=== PATIENT | female | born 1975 | race Caucasian/White ===

== ENCOUNTER 2021-05-05 06:28 | Outpatient (RCR) | payer BC, SELFPAY ==
--- NOTE | 2021-04-14 15:08 | N.ONRAD NP_ITS ---
Radiation Oncology Consultation Patient Name: Lorena Jacome Date of : 1975 Date of Service: 04/14/2021 Attending Physician: Omar Palm M.D. Lorena Jacome was seen in consultation this afternoon at the request of Moses Devlin M.D. for evaluation regarding potential postmastectomy radiotherapy for the management of a locally advanced breast cancer. She presented with left breast changes. Bilateral diagnostic mammography ordered on October 21, 2020 revealed a increased density in the subareolar region of the left breast with associated overlying skin thickening. A core needle biopsy obtained on October 22, 2020 diagnosed a grade 1-2 invasive mammary carcinoma with ductal and lobular features. A directed biopsy of a 1 cm left axillary lymph node demonstrated metastatic carcinoma. The breast cancer prognostic profile was positive for estrogen receptor (70%) and progesterone receptor (95%), but negative for HER-2. The Ki-67 was 10%. A MammaPrint Gene Risk of Recurrence identified a high risk luminal-type B molecular subtype. A metastatic work-up was unremarkable. Neoadjuvant chemotherapy (dose-dense Adriamycin and cyclophosphamide for 4 cycles and dose-dense paclitaxel for 4 cycles; Jessica Hughes D.O.-medical oncologist at [facility] in [place], [place]) was administered between the dates of November 19, 2020 through February 25, 2021. A left modified radical mastectomy with axillary lymph node dissection was performed on March 21, 2021 by Moses Devlin M.D. The [facility] diagnosed a grade 1 invasive mammary carcinoma with mixed lobular and ductal features measuring 5.5 cm associated with low-grade DCIS without extensive intraductal component. The closest surgical margin was 0.03 mm. A total of 19 lymph nodes were harvested with four macrometastases noted. The largest lymph node measured 1.5 cm with extranodal extension present. I reviewed with the patient her AJCC initial clinical stage IIA (T3N1) breast cancer, in addition to her pathological stage yIIA ??? T3N2a. I also discussed The National Comprehensive Cancer Network Guidelines for post-operative radiotherapy in patients with positive lymph node metastases. In addition, I described the classic studies by the [place] [facility] and the Early Breast Cancer Trialists??? Collaborative Group. She is aware that these studies demonstrated an overall survival improvement in patients treated with post-mastectomy radiotherapy. I recommend a 5 week course of chest wall and regional lymph node radiotherapy. A CT scan will be performed for radiotherapy planning prior to beginning treatment to delineate the clinical target volumes. The potential toxicity of postmastectomy radiotherapy was also addressed. The patient has verbalized understanding would like to discuss treatment with her family. The patient???s medical treatment plan was discussed with Moses Devlin M.D. Signed by: Dr. Omar Palm 04/14/2021 3:07:43 PM
--- NOTE | 2021-04-19 | CT_ITS ---
Radiation Therapy Planning CT images; total exam DLP: 450.41 mGy-cm MTDD
--- NOTE | 2021-04-25 08:55 | ONCRAD TMN_ITS ---
Radiation Oncology Treatment Management Note Patient Name: Lorena Jacome Date of : 1975 Date of Service: 04/25/2021 Attending Physician: Omar Palm M.D. Lorena Jacome is a 46 year-old white female diagnosed with a clinical stage IIA (T3N1) grade 1 invasive mammary carcinoma with mixed lobular and ductal features breast cancer of the subareolar region of the left breast. The breast cancer prognostic profile was positive for estrogen receptor (70%) and progesterone receptor (95%), but negative for HER-2. The Ki-67 was 10%. A MammaPrint Gene Risk of Recurrence identified a high risk luminal-type B molecular subtype. Neoadjuvant chemotherapy (dose-dense Adriamycin and cyclophosphamide for 4 cycles and dose-dense paclitaxel for 4 cycles) was administered between the dates of November 19, 2020 through February 25, 2021. A left modified radical mastectomy with axillary lymph node dissection was performed on March 21, 2021 by Moses Devlin M.D. Pathology demonstrated a grade 1 invasive mammary carcinoma with mixed lobular and ductal features breast cancer measuring 5.5 cm associated with low-grade DCIS without extensive intraductal component. The closest surgical margin was 0.03 mm. A total of 19 lymph nodes were harvested with four macrometastases noted. The largest lymph node measured 1.5 cm with extranodal extension present. The pathological stage is yIIA ??? T3N2a. She has received 2 Gy of a prescribed 50 Gy delivered with a 3D conformal radiotherapy plan utilizing opposed tangential portal guan matched to supraclavicular fossa and PAB ports. Upon review of systems, she denied chest wall complaints to radiotherapy. On physical examination, the patient weighed 173 lbs. Her temperature was 98.4 ???F with a blood pressure of 134/84 mmHg. Her pulse was 72 bpm and her respiratory rate was 18. There was no erythema within the treatment guan of the left chest wall. Continue left chest wall and regional lymph node irradiation as prescribed. Signed by: Dr. Omar Palm 05/03/2021 8:58:18 AM
--- NOTE | 2021-05-03 08:59 | ONCRAD TMN_ITS ---
Radiation Oncology Treatment Management Note Patient Name: Lorena Jacome Date of : 1975 Date of Service: 05/03/2021 Attending Physician: Omar Palm M.D. Lorena Jacome is a 46 year-old white female diagnosed with a clinical stage IIA (T3N1) grade 1 invasive mammary carcinoma with mixed lobular and ductal features breast cancer of the subareolar region of the left breast. The breast cancer prognostic profile was positive for estrogen receptor (70%) and progesterone receptor (95%), but negative for HER-2. The Ki-67 was 10%. A MammaPrint Gene Risk of Recurrence identified a high risk luminal-type B molecular subtype. Neoadjuvant chemotherapy (dose-dense Adriamycin and cyclophosphamide for 4 cycles and dose-dense paclitaxel for 4 cycles) was administered between the dates of November 19, 2020 through February 25, 2021. A left modified radical mastectomy with axillary lymph node dissection was performed on March 21, 2021 by Moses Devlin M.D. Pathology demonstrated a grade 1 invasive mammary carcinoma with mixed lobular and ductal features breast cancer measuring 5.5 cm associated with low-grade DCIS without extensive intraductal component. The closest surgical margin was 0.03 mm. A total of 19 lymph nodes were harvested with four macrometastases noted. The largest lymph node measured 1.5 cm with extranodal extension present. The pathological stage is yIIA ??? T3N2a. She has received 14 Gy of a prescribed 50 Gy delivered with a 3D conformal radiotherapy plan utilizing opposed tangential portal guan matched to supraclavicular fossa and PAB ports. Upon review of systems, she denied chest wall complaints related to radiotherapy. On physical examination, the patient weighed 175 lbs. Her temperature was 98.8 ???F with a blood pressure of 122/83 mmHg. Her pulse was 77 bpm and her respiratory rate was 18. There was no erythema within the treatment guan of the left chest wall. Continue left chest wall and regional lymph node irradiation as planned. Signed by: Dr. Omar Palm 05/03/2021 8:57:59 AM
== END 2021-05-05 23:59 | disposition home or self-care (01) ==
LOC: ONCMED 06:28
PROVIDERS: PCP Nurse Practitioner Family; Visit Provider Radiology Radiation Oncology
DX: Z51.0 Encounter for antineoplastic radiation therapy (principal); C50.812 Malignant neoplasm of overlapping sites of left female breast; Z17.0 Estrogen receptor positive status [ER+]; Z90.12 Acquired absence of left breast and nipple; C77.8 Secondary and unspecified malignant neoplasm of lymph nodes of multiple regions; Z79.899 Other long term (current) drug therapy
CPT/HCPCS: 77290; 77295; 77300; 77334; 77336; 77387; 77412; 99205; Q9967

== ENCOUNTER 2021-06-02 06:19 | Outpatient (RCR) | payer BC, SELFPAY ==
--- NOTE | 2021-05-09 08:47 | ONCRAD TMN_ITS ---
Radiation Oncology Treatment Management Note Patient Name: Lorena Jacome Date of : 1975 Date of Service: 05/09/2021 Attending Physician: Omar Palm M.D. Lorena Jacome is a 46 year-old white female diagnosed with a clinical stage IIA (T3N1) grade 1 invasive mammary carcinoma with mixed lobular and ductal features breast cancer of the subareolar region of the left breast. The breast cancer prognostic profile was positive for estrogen receptor (70%) and progesterone receptor (95%), but negative for HER-2. The Ki-67 was 10%. A MammaPrint Gene Risk of Recurrence identified a high risk luminal-type B molecular subtype. Neoadjuvant chemotherapy (dose-dense Adriamycin and cyclophosphamide for 4 cycles and dose-dense paclitaxel for 4 cycles) was administered between the dates of November 19, 2020 through February 25, 2021. A left modified radical mastectomy with axillary lymph node dissection was performed on March 21, 2021 by Moses Devlin M.D. Pathology demonstrated a grade 1 invasive mammary carcinoma with mixed lobular and ductal features breast cancer measuring 5.5 cm associated with low-grade DCIS without extensive intraductal component. The closest surgical margin was 0.03 mm. A total of 19 lymph nodes were harvested with four macrometastases noted. The largest lymph node measured 1.5 cm with extranodal extension present. The pathological stage is yIIA ??? T3N2a. She has received 20 Gy of a prescribed 50 Gy delivered with a 3D conformal radiotherapy plan utilizing opposed tangential portal guan matched to supraclavicular fossa and PAB ports. Upon review of systems, she denied chest wall complaints related to radiotherapy. On physical examination, the patient weighed 173 lbs. Her temperature was 98.2 ???F with a blood pressure of 122/83 mmHg. Her pulse was 71 bpm and her respiratory rate was 18. There was no erythema within the treatment guan of the left chest wall. Continue left chest wall and regional lymph node irradiation as prescribed. Signed by: Dr. Omar Palm 05/09/2021 8:45:52 AM
--- NOTE | 2021-05-16 09:05 | ONCRAD TMN_ITS ---
Radiation Oncology Treatment Management Note Patient Name: Lorena Jacome Date of : 1975 Date of Service: 05/16/2021 Attending Physician: Omar Palm M.D. Lorena Jacome is a 46 year-old white female diagnosed with a clinical stage IIA (T3N1) grade 1 invasive mammary carcinoma with mixed lobular and ductal features breast cancer of the subareolar region of the left breast. The breast cancer prognostic profile was positive for estrogen receptor (70%) and progesterone receptor (95%), but negative for HER-2. The Ki-67 was 10%. A MammaPrint Gene Risk of Recurrence identified a high risk luminal-type B molecular subtype. Neoadjuvant chemotherapy (dose-dense Adriamycin and cyclophosphamide for 4 cycles and dose-dense paclitaxel for 4 cycles) was administered between the dates of November 19, 2020 through February 25, 2021. A left modified radical mastectomy with axillary lymph node dissection was performed on March 21, 2021 by Moses Devlin M.D. Pathology demonstrated a grade 1 invasive mammary carcinoma with mixed lobular and ductal features breast cancer measuring 5.5 cm associated with low-grade DCIS without extensive intraductal component. The closest surgical margin was 0.03 mm. A total of 19 lymph nodes were harvested with four macrometastases noted. The largest lymph node measured 1.5 cm with extranodal extension present. The pathological stage is yIIA ??? T3N2a. She has received 30 Gy of a prescribed 50 Gy delivered with a 3D conformal radiotherapy plan utilizing opposed tangential portal guan matched to supraclavicular fossa and PAB ports. Upon review of systems, she denied chest wall complaints related to radiotherapy. On physical examination, the patient weighed 173 lbs. Her temperature was 98.4 ???F with a blood pressure of 121/80 mmHg. Her pulse was 77 bpm and her respiratory rate was 18. There was no erythema within the treatment guan of the left chest wall. A mild rash was present in the sternal region. Continue left chest wall and regional lymph node irradiation as planned. Signed by: Dr. Omar Palm 05/16/2021 9:02:57 AM
--- NOTE | 2021-05-23 08:37 | ONCRAD TMN_ITS ---
Radiation Oncology Treatment Management Note Patient Name: Lorena Jacome Date of : 1975 Date of Service: 05/23/2021 Attending Physician: Omar Palm M.D. Lorena Jacome is a 46 year-old white female diagnosed with a clinical stage IIA (T3N1) grade 1 invasive mammary carcinoma with mixed lobular and ductal features breast cancer of the subareolar region of the left breast. The breast cancer prognostic profile was positive for estrogen receptor (70%) and progesterone receptor (95%), but negative for HER-2. The Ki-67 was 10%. A MammaPrint Gene Risk of Recurrence identified a high risk luminal-type B molecular subtype. Neoadjuvant chemotherapy (dose-dense Adriamycin and cyclophosphamide for 4 cycles and dose-dense paclitaxel for 4 cycles) was administered between the dates of November 19, 2020 through February 25, 2021. A left modified radical mastectomy with axillary lymph node dissection was performed on March 21, 2021 by Moses Devlin M.D. Pathology demonstrated a grade 1 invasive mammary carcinoma with mixed lobular and ductal features breast cancer measuring 5.5 cm associated with low-grade DCIS without extensive intraductal component. The closest surgical margin was 0.03 mm. A total of 19 lymph nodes were harvested with four macrometastases noted. The largest lymph node measured 1.5 cm with extranodal extension present. The pathological stage is yIIA ??? T3N2a. She has received 32 Gy of a prescribed 50 Gy delivered with a 3D conformal radiotherapy plan utilizing opposed tangential portal guan matched to supraclavicular fossa and PAB ports. Upon review of systems, she denied chest wall complaints related to radiotherapy. On physical examination, the patient weighed 174 lbs. Her temperature was 98.5 ???F with a blood pressure of 131/84 mmHg. Her pulse was 85 bpm and her respiratory rate was 18. There was no erythema within the treatment guan of the left chest wall. A mild rash was present in the sternal region. Continue left chest wall and regional lymph node irradiation as prescribed. Signed by: Dr. Omar Palm 05/23/2021 8:35:52 AM
--- NOTE | 2021-05-30 09:00 | ONCRAD TMN_ITS ---
Radiation Oncology Treatment Management Note Patient Name: Lorena Jacome Date of : 1975 Date of Service: 05/30/2021 Attending Physician: Omar Palm M.D. Lorena Jacome is a 46 year-old white female diagnosed with a clinical stage IIA (T3N1) grade 1 invasive mammary carcinoma with mixed lobular and ductal features breast cancer of the subareolar region of the left breast. The breast cancer prognostic profile was positive for estrogen receptor (70%) and progesterone receptor (95%), but negative for HER-2. The Ki-67 was 10%. A MammaPrint Gene Risk of Recurrence identified a high risk luminal-type B molecular subtype. Neoadjuvant chemotherapy (dose-dense Adriamycin and cyclophosphamide for 4 cycles and dose-dense paclitaxel for 4 cycles) was administered between the dates of November 19, 2020 through February 25, 2021. A left modified radical mastectomy with axillary lymph node dissection was performed on March 21, 2021 by Moses Devlin M.D. Pathology demonstrated a grade 1 invasive mammary carcinoma with mixed lobular and ductal features breast cancer measuring 5.5 cm associated with low-grade DCIS without extensive intraductal component. The closest surgical margin was 0.03 mm. A total of 19 lymph nodes were harvested with four macrometastases noted. The largest lymph node measured 1.5 cm with extranodal extension present. The pathological stage is yIIA ??? T3N2a. She has received 44 Gy of a prescribed 50 Gy delivered with a 3D conformal radiotherapy plan utilizing opposed tangential portal guan matched to supraclavicular fossa and PAB ports. Upon review of systems, she denied chest wall complaints related to radiotherapy. On physical examination, the patient weighed 175 lbs. Her temperature was 98.2 ???F and the blood pressure was 123/88 mmHg. Her pulse was 76 bpm and her respiratory rate was 18. A grade I dermatitis was present within the treatment guan of the left chest wall. Continue left chest wall and regional lymph node irradiation as planned. Signed by: Dr. Omar Palm 05/30/2021 8:58:50 AM
--- NOTE | 2021-06-02 08:34 | N.ONRD TS_ITS ---
Radiation OncologyTreatment Summary Patient Name: Lorena Jacome Date of : 1975 Date of Service: 06/02/2021 Attending Physician: Omar Palm M.D. Lorena Jacome has completed adjuvant radiotherapy for a clinical stage IIA (T3N1) grade 1 invasive mammary carcinoma with mixed lobular and ductal features breast cancer of the subareolar region of the left breast. The breast cancer prognostic profile was positive for estrogen receptor (70%) and progesterone receptor (95%), but negative for HER-2. The Ki-67 was 10%. The pathological stage was IIA ??? T3N2a. Neoadjuvant chemotherapy (dose-dense Adriamycin and cyclophosphamide for 4 cycles and dose-dense paclitaxel for 4 cycles) was administered between the dates of November 19, 2020 through February 25, 2021. A left modified radical mastectomy with axillary lymph node dissection was performed on March 21, 2021 by Moses Devlin M.D. Pathology demonstrated a grade 1 invasive mammary carcinoma with mixed lobular and ductal features breast cancer measuring 5.5 cm associated with low-grade DCIS without extensive intraductal component. The closest surgical margin was 0.03 mm. A total of 19 lymph nodes were harvested with four macrometastases noted. The largest lymph node measured 1.5 cm with extranodal extension present. Daily radiotherapy was administered between the dates of April 25, 2021 through June 02, 2021. A dose of 50 Gy was delivered in 25 fractions encompassing 39 elapsed days. The left chest wall and regional lymph nodes were treated utilizing a 3-dimensional conformal radiotherapy plan with an opposed tangential portal field design matched to a right anterior oblique port and posterior axillary boost field. The medial tangential field utilized a 312??? gantry angle with an associated collimator angle of 0???. The field size measured 5 cm x 7 cm within the X-direction and 18 cm x 0 cm within the Y-direction. The measured SSD was 95.1 cm with the field delivering 59 monitor units with low energy photons. A complementary field was incorporated in a [id number] approach that apportioned 5 monitor units. Supplemental medial tangential ports were designed with a field-field technique that prescribed with 15 MV photon energy administering 45 MU, 6 MU, 7 MU, 7 MU, and 7 MU, respectively. The lateral tangential field employed a gantry angle of 134??? and an associated collimator angle of 0???. The field size measured 7 cm x 5 cm within X-direction and 18 cm x 0 cm within the Y-direction. The measured SSD was 87.6 cm with the field delivering 61 monitor units. A photon energy of 6 MV was prescribed. Additional lateral tangential guan were arranged using a [id number] technique delivering 15 MV photon energy and allocating 38 MU, 5 MU, and 5 MU. The supraclavicular portal guan implemented an GLOVER port with a gantry angle of 345??? and an associated collimator angle 0???. The port size measured 10.5 cm x 5 cm within the X-direction and 0 cm x 7.5 cm within the Y-direction. The measured SSD was 97.1 cm with the port apportioning 182 monitor units. A photon energy of 15 MV was prescribed. Supplemental [id number] were designed prescribing 15 MV photon energies that distributed 20 MU and 6 MU. An additional field-field was utilized with a 6 MV photon energy that conferred 5 MU. A posterior axillary boost field was incorporated with a gantry angle of 180??? and a 0???collimator angle. The field measured 5 cm x 8.8 cm within the X-direction and 7.5 cm x 0 cm within the Y-direction. The port allotted 31 monitor units. All treatments were performed with the [employer] linear accelerator with an isocentric technique. The dose was calculated by anisotropic analytic algorithm. The plan normalized to deliver 95% of the prescription dose to 95% of the planning target volume. Signed by: Dr. Omar Palm 06/23/2021 1:26:00 PM
== END 2021-06-05 23:59 | disposition home or self-care (01) ==
LOC: ONCMED 06:19
PROVIDERS: PCP Nurse Practitioner Family; Visit Provider Radiology Radiation Oncology
DX: Z51.0 Encounter for antineoplastic radiation therapy (principal); C50.012 Malignant neoplasm of nipple and areola, left female breast; Z17.0 Estrogen receptor positive status [ER+]
CPT/HCPCS: 77336; 77387; 77412

== ENCOUNTER 2021-06-24 06:39 | Outpatient (RCR) | payer BC, SELFPAY ==
--- NOTE | 2021-06-24 08:51 | ONCRAD EPV_ITS ---
Radiation Oncology Follow-Up Note Patient Name: Lorena Jacome Date of : 1975 Date of Service: 06/24/2021 Attending Physician: Omar Palm M.D. Lorena Jacome returned to my office this morning for a routinely scheduled post-radiotherapy appointment. She completed post-mastectomy radiotherapy in May for a pathological stage was IIA (T3N2a ) grade 1 invasive mammary carcinoma with mixed lobular and ductal features breast cancer of the subareolar region of the left breast. The breast cancer prognostic profile was positive for estrogen receptor (70%) and progesterone receptor (95%), but negative for HER-2. The Ki-67 was 10%. The initial clinical stage was IIA (T3N1). Neoadjuvant chemotherapy (dose-dense Adriamycin and cyclophosphamide for 4 cycles and dose-dense paclitaxel for 4 cycles) was administered between the dates of November 19, 2020 through February 25, 2021. A left modified radical mastectomy with axillary lymph node dissection was performed on March 21, 2021 by Moses eDvlin M.D. Pathology demonstrated a grade 1 invasive mammary carcinoma with mixed lobular and ductal features breast cancer measuring 5.5 cm associated with low-grade DCIS without extensive intraductal component. The closest surgical margin was 0.03 mm. A total of 19 lymph nodes were harvested with four macrometastases noted. The largest lymph node measured 1.5 cm with extranodal extension present. Daily radiotherapy was administered between the dates of April 25, 2021 through June 02, 2021. A dose of 50 Gy was delivered in 25 fractions encompassing 39 elapsed days. On review of systems, she denied skin complaints of the left chest wall. On physical examination, she weighed 173 lbs and her temperature was 98.1???F. Her blood pressure was 114/82 mmHg. The pulse was 73 bpm and her respiratory rate was 18 breaths per minute. The left chest wall demonstrated minimal hyperpigmentation without any areas of ulceration. In summary, Ms. Jacome returned for a routine post-radiotherapy follow-up. No sequelae from treatment were present. She will continue follow-up with her medical oncologist. Signed by: Dr. Omar Palm 06/24/2021 8:49:31 AM
== END 2021-07-05 23:59 | disposition home or self-care (01) ==
LOC: ONCMED 06:39
PROVIDERS: PCP Nurse Practitioner Family; Visit Provider Radiology Radiation Oncology
DX: C50.012 Malignant neoplasm of nipple and areola, left female breast (principal); Z17.0 Estrogen receptor positive status [ER+]; Z90.12 Acquired absence of left breast and nipple; Z92.21 Personal history of antineoplastic chemotherapy; Z92.3 Personal history of irradiation
CPT/HCPCS: 99024